=== PATIENT | female | born 1960 | race Caucasian/White ===

== ENCOUNTER → 2017-11-14 | Outpatient (CLI) | payer BC, OTHER ==
[~2017-11-14] MED LIST: ASPIRIN 81M81 MG/TA2 PO; MULTI VITAMINS1 TAB PO; OYSTER SHELL C500 M3 PO; ZEBETA10 MG PO; ZESTRIL 10MG10 MG PO; [UNRECOGNIZED DRUG - OTHER]
== END ==
LOC: ZCOL.LAB 09:26
DX: M79.604 Pain in right leg (principal)

== ENCOUNTER → 2018-03-11 | Outpatient (CLI) | payer BC, OTHER | LOC: COL.RAD 07:27 | DX: I71.2 Thoracic aortic aneurysm, without rupture (principal); R91.8 Other nonspecific abnormal finding of lung field | CPT/HCPCS: Q9967 ==

== ENCOUNTER → 2020-10-13 | Outpatient (CLI) | payer BC, OTHER | LOC: MC.RAD | DX: Z12.31 Encounter for screening mammogram for malignant neoplasm of breast (principal) ==

== ENCOUNTER → 2021-11-07 | Outpatient (CLI) | payer BC, OTHER | LOC: MC.RAD 09:09 | DX: Z12.31 Encounter for screening mammogram for malignant neoplasm of breast (principal) ==

== ENCOUNTER 2022-11-02 06:15 | Day surgery (SDC) | payer BC, OTHER ==
[~2022-11-02] VITALS: Ht 160 cm; Wt 72.7 kg
[~2022-11-02 06:15] MED LIST changes: +OSCAL 500 TAB500 MG PO; -OYSTER SHELL C500 M3 PO
[2022-11-02 06:44] VITALS: BP 124/85; PULSE 64; TEMP 97.7
[2022-11-02] MEDS ORDERED: PRINIVIL20 MG PO (06:47)
[2022-11-02] MEDS ORDERED: ZIAC 10/6.25M1 UDTAB PO (06:47)
[2022-11-02] MEDS ORDERED: ESTRACE0.1 MG/GM VG (06:48)
[2022-11-02 07:50] VITALS: BP 87/66; PULSE 64; TEMP 97.7
[2022-11-02 08:05] VITALS: BP 110/72; PULSE 68
[2022-11-02 08:15] VITALS: BP 111/68; PULSE 68
--- NOTE | 2022-11-02 08:20 | NUR ---
0750 RETURNS TO ROOM 3 PER CART. AWAKE, ALERT. RESP UNLABORED. AMBULATES TO RECLINER WITH STANDBY ASSIST. DENIES NAUSEA OR ABD PAIN. VITAL SIGNS OBTAINED. CALL LIGHT AT SIDE. IN ROOM 0800 TOLERATES PO SODA AND MUFFIN WITHOUIT NAUSEA 0803 DR. CHIN HERE TO VISIT WITH PATIENT 0805 DISCHARGE INSTRUCTIONS REVIEWED. PATIENT VERBALIZES UNDERSTANDING. COPY PROVIDED IN DISCHARGE FOLDER. 0815 DRESSES SLEF. CONTINUES TO DENY NAUSEA OR ABD PAIN
== END 2022-11-02 08:20 | disposition home or self-care (01) ==
LOC: SDCO 06:15
DX: D12.0 Benign neoplasm of cecum (principal); D12.8 Benign neoplasm of rectum; K57.30 Diverticulosis of large intestine without perforation or abscess without bleeding; R19.7 Diarrhea, unspecified; R19.12 Hyperactive bowel sounds; R14.0 Abdominal distension (gaseous)
CPT/HCPCS: J2704; J7120

== ENCOUNTER 2024-05-21 14:46 | Emergency (ER) | payer BC, OTHER ==
[~2024-05-21] VITALS: Ht 160 cm; Wt 72.7 kg
[~2024-05-21 14:46] MED LIST changes: +ESTRACE0.1 MG/GM VG; +PRINIVIL20 MG PO; +ZIAC 10/6.25M1 UDTAB PO
[2024-05-21 17:49] VITALS: BP 129/82; PULSE 62; TEMP 97.5
== END 2024-05-21 17:49 | disposition home or self-care (01) ==
LOC: COL.ER 14:46
DX: S93.402A Sprain of unspecified ligament of left ankle, initial encounter (principal); S93.401A Sprain of unspecified ligament of right ankle, initial encounter; X50.1XXA Overexertion from prolonged static or awkward postures, initial encounter; Y93.01 Activity, walking, marching and hiking